=== PATIENT | male | born 1945 | race Caucasian/White ===

== ENCOUNTER 2020-04-03 05:30 | Outpatient (CLI) | payer MEDICARE, BC, SELFPAY ==
[2020-04-03 12:18] LABS: Bilirubin Negative (Negative); Blood Large (Negative); Clarity Cloudy (Clear); Glucose Negative (Negative); Ketones Negative (Negative); Leukocyte Esterase Negative (Negative); Nitrite Negative (Negative); Urobilinogen 0.2 EU/dL (Up TO 0.2)
[2020-04-03 12:28] LABS: C & S Indicated? C&S Done As Ordered; RBC >50 HPF (0-2)
== END 2020-04-03 05:50 ==
PROVIDERS: Visit Provider Physician Assistant
DX: R31.0 Gross hematuria (principal)
CPT/HCPCS: 81003; 81015; 87086

== ENCOUNTER 2020-07-19 04:13 | Outpatient (CLI) | payer MEDICARE, SELFPAY ==
[2020-07-19 16:43] LABS: Abs Immature Grans 0.01 10^3/uL (0.0-0.06); Absolute Basophil Count 0.07 10^3/uL (0.0-0.2); Absolute Eosinophil Count 0.09 10^3/uL (0.0-0.7); Absolute Lymphocyte Count 0.94 10^3/uL (1.2-3.4); Absolute Monocyte Count 0.34 10^3/uL (0.1-0.8); Absolute Neutrophil Count 2.15 10^3/uL (1.2-6.7); Basophils % 1.9; Eosinophils % 2.5; HCT 39.8 % (40.0-50.0); HGB 12.3 g/dL (13.5-17.5); Immature Grans % 0.3; Lymphocytes % 26.1; MCH 26.2 pg (27.0-33.0); MCHC 30.9 % (32.0-36.0); MCV 84.7 fL (80-95); MPV 9.2 fL (8.0-11.0); Monocytes % 9.4; Neutrophils % 59.8; Nucleated RBC 0 %; Platelet Count 259 10^3/uL (130-400); RDW 25.8 % (11.8-14.1); RDW-SD 77.3 fL
[2020-07-19 17:06] LABS: Iron 50 ug/dL (65-175); Total Iron Binding Capacity 335 ug/dL (250-450); Transferrin Sat 15 % (20-55)
[2020-07-19 17:16] LABS: Ferritin 38 ng/mL (26-388)
[2020-07-19 17:18] LABS: Diff Comment RBC Morph Reviewed
[2020-07-19 17:19] LABS: Anisocytosis 3+; Macrocytosis 1+; Microcytosis 1+; Polychromasia Present
== END 2020-07-19 04:33 ==
PROVIDERS: Visit Provider Family Medicine
DX: D50.9 Iron deficiency anemia, unspecified (principal)
CPT/HCPCS: 36415; 82728; 83540; 83550; 85025

== ENCOUNTER 2020-07-23 17:30 | Emergency (ER) | payer MEDICARE, SELFPAY ==
[2020-07-23 17:34] VITALS: BP 149/77; PULSE 61; RESP 16; TEMP 36.5; O2SAT 97
--- NOTE | 2020-07-23 17:47 | ED.GENADUL_ITS ---
Discharge Plan Disposition Patient Disposition: HOME Condition: Stable Discharge Details Clinical Impression: Arm pain, right Primary Care Provider: Hermelinda De Dios ED Provider: Edwina Chowdary Home Meds and New Rx's Prescriptions: New oxycodone 5 mg tablet 5 mg PO Q6H PRN (Reason: pain) Qty: 10 RF: 0 Continued iron 18 mg Tablet 18 mg PO DAILY RF: 0 Discharge Instructions Instructions: Arm Fracture in Adults (ED) Additional Instructions: Your x-ray was negative for fracture. A CAT scan could possibly sampler pickup a hairline fracture but would not change the management with rest, ice and a sling. If your symptoms do not improve or worsen, you should follow-up with orthopedics for further evaluation and consideration for possible rotator cuff injury. Rest, ice, and elevate the affected area as much as possible. Apply ice to the affected area several times daily for 20 minutes at a time. Take Tylenol as needed and directed for pain. Take the oxycodone for pain not relieved with Tylenol. Follow-up with your primary care doctor in 1 week. Follow-up with orthopedics if your symptoms do not improve or worsen. Return to the emergency department with any worsening or new concerning symptoms. Referrals: Todd Whalen MD [ [facility] STAFF PHYSICIAN] - Discharge Data Discharge Date/Time-TO BE ENTERED AT DEPARTURE: 07/23/20 20:21 Discharge Physician: Edwina Chowdary Medical Decision Making 74-year-old male presents with right upper arm pain after slip and fall onto ice hitting his elbow on the ground causing shooting pain up his right arm. Denies any elbow pain. Denies head injury or any other injury. Tenderness to palpation right proximal anterior and lateral humerus. No obvious deformity noted. Neurovascular intact. No right snuffbox tenderness. Right elbow nontender without evidence of trauma. No tenderness to palpation of right chest or right upper back. No midline C-spine tenderness. No evidence of head trauma. Consider proximal humerus fracture, rotator cuff injury, contusion. Patient referred for right humerus x-ray which was negative. Patient placed in a sling. It was discussed that he may have a contusion or a possible rotator cuff tear. He was advised on the importance of RICE. We will send with pain medication to take as needed. Patient given orthopedic follow-up information if his symptoms do not improve or worsen. Usual and customary return precautions given prior to discharge. Imaging Data Radiologic Study: Radiologist's impression: XR Right Humerus Exam date and time: 07/23/2020 6:21 PM Age: 74 years old Clinical indication: Injury or trauma; Fall; Blunt trauma (contusions or hematomas); Arm, upper; Right; Injury date: 07/23/20; Injury details: Fell on elbow with R proximal humerus pain TECHNIQUE: Imaging protocol: XR Right humerus Views: 2 or more views. COMPARISON: No relevant prior studies available. FINDINGS: Bones/joints: No fracture or dislocation. Lungs: The visualized right lung is clear. Soft tissues: Normal. IMPRESSION: No fracture or dislocation. HPI General Mode of arrival: ambulatory . Date/Time Provider Initiated Documentation: 07/23/20 17:47 . Limitations to Documentation: no limitations . Information obtained by: patient . HPI Narrative: Patient is a 74-year-old male who presents with right upper arm pain after fall on ice hitting his right elbow. Patient denies any pain in his elbow but states he feels like his elbow hit the ground causing shooting pain up into his right upper arm. He denies any head injury, chest or abdominal pain, neck or back pain, elbow pain or any other extremity injury. He has not taken any medication for pain. He states he is a few weeks status post a TURP and was advised not to take NSAIDs. Related Data Home Medications Medication Instructions Recorded Confirmed iron 18 mg PO DAILY 07/23/20 07/23/20 oxycodone 5 mg PO Q6H PRN #10 tab 07/23/20 Previous Rx's Medication Instructions Recorded oxycodone 5 mg PO Q6H PRN #10 tab 07/23/20 Allergies Allergy/AdvReac Type Severity Reaction Status Date / Time No Known Allergies Allergy Unverified 07/23/20 17:38 General Stated Complaint: Orthopedic ERNESTINE: 4 Review of Systems All systems reviewed & are unremarkable except as noted in HPI and below Constitutional Constitutional: Reports as per HPI, Denies chills and Denies fever(s) Eyes Eyes: Denies blurry vision ENT Ears, Nose, Mouth, and Throat: Denies dizziness, Denies sore throat and Denies throat swelling Cardiovascular Cardiovascular: Denies chest pain and Denies dyspnea Respiratory Respiratory: Denies cough and Denies dyspnea Gastrointestinal Gastrointestinal: Denies abdominal pain, Denies diarrhea and Denies vomiting Genitourinary Genitourinary: Denies hematuria and Denies dysuria Musculoskeletal Musculoskeletal: Denies back pain, Denies numbness and Reports other (R upper arm pain) Integumentary/Breasts Skin/Breast: Denies lesions and Denies rash Neurologic Neurologic: Denies dizziness, Denies localized weakness and Denies numbness Allergic/Immunologic Allergic/Immunologic: Denies throat swelling [facility] Medical History (Updated 07/25/20 @ 17:01 by Edwina Chowdary DO) Bladder cancer Surgical History (Updated 07/23/20 @ 18:23 by Edwina Chowdary DO) S/P TURP Social History Smoking/Tobacco Use Status: Never Smoking risk assessment performed?: Yes Substance use type: does not use Current gender identity: male Exam Const General: cooperative, healthy appearing and no acute distress HENMT Head: normal to inspection Face and sinus: normal facial exam Eyes General: appearance normal, both eyes and all related structures EOM: EOM intact bilaterally Neck Neck: normal visual inspection and No submandibular swelling Lymphatic: no lymphadenopathy noted Chest Chest: normal inspection of the chest, normal palpation of entire chest wall, no crepitus and no tenderness Resp Effort & Inspection: normal respiratory effort and able to speak in complete sentences Cardio Rate: regular rate Rhythm: regular rhythm GI Inspection: normal to inspection Palpation: soft, not firm, not rigid and nontender Auscultation: normal bowel sounds Skin General skin exam: no rashes or lesions noted Neuro General: patient alert, patient awake and patient oriented x3 Cognition: normal cognition Speech: speech normal Motor: muscle tone normal throughout Sensory Exam: no sensory deficits noted Extrem General: capillary refill normal Other: Patient holding right arm close to body. Tenderness to palpation to right proximal anterior and lateral upper arm. No edema, erythema, ecchymosis, crepitus or open wound. No tenderness palpation to right elbow. No evidence of trauma to right elbow. Right clavicle nontender without evidence of trauma. No right snuffbox tenderness. No orthopedic deformities noted. Right upper extremity distal pulses intact. Good right hand saddle mechanic. Psych Appearance: grossly normal Mental Status: mental status grossly normal Speech and Movement: speech and movement normal Affect: normal affect Course Vital Signs Vital signs: Vital Signs Temperature 97.7 F 07/23/20 17:34 Pulse 61 07/23/20 17:34 Respiratory Rate 16 07/23/20 17:34 Blood Pressure 149/77 H 07/23/20 17:34 Pulse Oximetry 97 07/23/20 17:34 Temperature 97.7 F 07/23/20 17:34 Temperature Source Skin 07/23/20 17:34 Pulse 61 07/23/20 17:34 Respiratory Rate 16 07/23/20 17:34 Respiratory Effort Non-Labored 07/23/20 17:34 Blood Pressure 149/77 H 07/23/20 17:34 Blood Pressure Position Sitting 07/23/20 17:34 Pulse Oximetry 97 07/23/20 17:34 Oxygen Delivery Method Room Air 07/23/20 17:34 Oxygen Flow Rate 0 07/23/20 17:34 Pain Level 8 07/23/20 17:34 Sign Out Sign Out Data: Sign Out Comment: Follow-up on x-ray and final disposition. Last updated by Edwina Chowdary DO at 07/23/20 19:53
--- NOTE | 2020-07-23 18:15 | DI.RAD_ITS ---
EXAM: XR HUMERUS RT CLINICAL HISTORY: hit R elbow on ground, pain R proximal humerus. TECHNIQUE: 2D digital imaging was performed. COMPARISON: No exams were available for comparison FINDINGS: BONES: No acute fracture is present. No bony destructive lesion is seen. Visualized portion of elbow and shoulder joints are unremarkable. SOFT TISSUE: Normal. IMPRESSION: No acute fracture or dislocation. DATA REPOSITORY: RADIATION DOSE DELIVERED:
[2020-07-23] MEDS: Acetaminophen 325 MG TAB 650 MG PO (18:31)
--- NOTE | 2020-07-23 20:02 | DI.VRAD_ITS ---
PROCEDURE INFORMATION: Exam: XR Right Humerus Exam date and time: 07/23/2020 6:21 PM Age: 74 years old Clinical indication: Injury or trauma; Fall; Blunt trauma (contusions or hematomas); Arm, upper; Right; Injury date: 07/23/20; Injury details: Fell on elbow with R proximal humerus pain TECHNIQUE: Imaging protocol: XR Right humerus Views: 2 or more views. COMPARISON: No relevant prior studies available. FINDINGS: Bones/joints: No fracture or dislocation. Lungs: The visualized right lung is clear. Soft tissues: Normal. IMPRESSION: No fracture or dislocation. Dictated and Authenticated by: Yoandy Zamora MD. Ordering:SILVIA Bland MD
== END 2020-07-23 20:21 | disposition home or self-care (01) ==
PROVIDERS: Emergency Provider Physician Assistant; PCP Internal Medicine
DX: M79.621 Pain in right upper arm (principal); W00.0XXA Fall on same level due to ice and snow, initial encounter
CPT/HCPCS: 99283; 73060

== ENCOUNTER 2020-11-13 02:20 | Outpatient (CLI) | payer MEDICARE, SELFPAY ==
--- NOTE | 2020-11-13 12:30 | DI.RAD_ITS ---
Exam(s) XR CHEST 2V PA LATERAL EXAM: XR CHEST 2V PA LATERAL CLINICAL HISTORY: MALIGNANT NEOPLASM URINARY BLADDER,C67.9,PREOP. TECHNIQUE: 2D digital imaging was performed. COMPARISON: No exams were available for comparison FINDINGS: Heart size is normal. The mediastinum is not widened. Lungs are clear. No infiltrates nor pleural effusions. Mild loss of height at superior endplate level of midthoracic vertebra is noted. IMPRESSION: No acute pulmonary findings.Some loss of height of a midthoracic vertebral body is noted on the later al view. DATA REPOSITORY: RADIATION DOSE DELIVERED:
== END 2020-11-13 02:40 ==
PROVIDERS: PCP Internal Medicine; Visit Provider Surgery
DX: C67.9 Malignant neoplasm of bladder, unspecified (principal); Z01.818 Encounter for other preprocedural examination
CPT/HCPCS: 71046

== ENCOUNTER 2020-11-13 03:23 | Outpatient (CLI) | payer MEDICARE, SELFPAY ==
--- NOTE | 2020-11-13 12:15 | RT.EKG_ITS ---
APPROVED REPORT Exam: Resting ECG Reason for Exam: MALIGNANT NEOPLASM OF URINARY BLADDER Patient Location: O HR:61 bpm ECG Measurements Heart Rate 61 AXIS NM 150 P 61 QRSd 136 QRS 59 QT 430 T 41 QTc 432 Conclusion Sinus rhythm...normal P axis, V-rate 60- 99 Right bundle branch block...QRSd>120, terminal axis(90,270)
== END 2020-11-13 03:24 | disposition home or self-care (01) ==
LOC: RT 03:23
PROVIDERS: PCP Internal Medicine; Visit Provider Surgery
DX: I45.19 Other right bundle-branch block (principal); C67.9 Malignant neoplasm of bladder, unspecified; Z01.810 Encounter for preprocedural cardiovascular examination
CPT/HCPCS: 93005; 93010